=== PATIENT | female | born 1995 | race Caucasian/White ===

== ENCOUNTER 2020-01-05 10:55 | Outpatient (REF) | payer OTHER, SELFPAY ==
[2020-01-05 15:12] LABS: Influenza A PCR NEGATIVE (Negative); Influenza B PCR NEGATIVE (Negative); Resp Syncy Virus RNA Qual PCR NEGATIVE (Negative); SARS COV2 PCR INHOUSE POSITIVE (Negative)
== END 2020-01-05 10:56 | disposition home or self-care (01) ==
LOC: HO.LAB 10:55
PROVIDERS: Visit Provider Hospitalist
DX: Z20.828 Contact with and (suspected) exposure to other viral communicable diseases (principal); B34.9 Viral infection, unspecified
CPT/HCPCS: 0241U

== ENCOUNTER 2020-01-06 11:11 | Emergency (ER) | payer OTHER, SELFPAY ==
[2020-01-06 11:39] VITALS: BP 111/75; PULSE 90; RESP 22; TEMP 36.7; O2SAT 99; BMI 36.1
--- NOTE | 2020-01-06 13:15 | ED.URI ---
HPI - URI/Sore Throat General Chief Complaint: Upper Respiratory Symptoms Stated Complaint: Covid + SOB Time Seen by Provider: 01/06/20 13:15 Source: patient Mode of arrival: ambulatory Limitations: no limitations History of Present Illness HPI Narrative: This is a 24-year-old female who reports to me that on 3 days ago she developed some runny nose congestion and body aches yesterday she went to her primary care doctor where she had a rapid test that was positive for COVID-19 she was subsequently discharged with precautions she tells me that she has very bad anxiety so she subsequently went to [facility] where she was evaluated had labs including chest x-ray according to the patient and was prescribed prednisone. She reports today that she has family members including her female partner who has had asthma and she is very anxious and she is afraid of given them COVID-19 and continues to have some congestion and body aches. No fever. States her anxiety is running very high due to his diagnosis. She denies any other social issues. she denies any GI symptoms. MD elicited complaint: fever, cough, rhinorrhea and nasal congestion Onset (ago): day(s) Consistency: intermittent Severity: mild Description of mucous: clear Able to tolerate fluids by mouth: Yes Exacerbating factors: nothing Relieving factors: nothing Context: sick contacts Associated symptoms: denies other symptoms Treatments prior to arrival: none and other ( Prednisone) Related Data Home Medications Medication Instructions Recorded Confirmed albuterol sulfate 90 mcg/actuation 2 puff PO Q4H PRN 01/05/20 01/05/20 aerosol inhaler famotidine 40 mg tablet 40 mg PO BEDTIME 01/05/20 01/05/20 ibuprofen 800 mg tablet 800 mg PO Q8H PRN 01/05/20 01/05/20 norethindrone acetate 1 mg-ethinyl 1 tab PO DAILY 01/05/20 01/05/20 estradiol 20 mcg tablet omeprazole 20 mg capsule,delayed 20 mg PO QAM 01/05/20 01/05/20 release vitamin 1 tab PO DAILY 01/05/20 01/05/20 no.76-iron,carbonyl 29 mg iron-folic acid 1 mg tablet sertraline 50 mg tablet 50 mg PO DAILY 01/05/20 01/05/20 trimethoprim 100 mg tablet 100 mg PO DAILY 01/05/20 01/05/20 Previous Rx's Medication Instructions Recorded amoxicillin 875 mg-potassium 1 tab PO BID #20 tab 01/05/20 clavulanate 125 mg tablet prednisone 20 mg tablet 20 mg PO .COMPLEX #18 tab 01/05/20 Allergies Allergy/AdvReac Type Severity Reaction Status Date / Time diphenhydramine [Excedrin PM] Allergy Unknown dizziness Verified 01/06/20 11:38 acetaminophen AdvReac Unknown dizziness Verified 01/06/20 11:38 [Excedrin Migraine] aspirin [Excedrin Migraine] AdvReac Unknown dizziness Verified 01/06/20 11:38 caffeine [Excedrin Migraine] AdvReac Unknown dizziness Verified 01/06/20 11:38 Wellbutrin AdvReac Unknown anger Uncoded 01/05/20 10:50 Review of Systems Review of Systems: Constitutional: No Weight loss, No Fever, No Chills, No Night Sweats, No Fatigue, No Malaise ENT/Mouth: No Hearing loss, No Ear Pain, No Nasal Congestion, No Sinus Pain, No Hoarseness, No sore throat, + Rhinorrhea, No Swallowing Difficulty Eyes: No Eye Pain, No Swelling, No Redness, No Foreign Body, No Discharge, No Vision Changes Cardiovascular: No Chest Pain, No SOB, No Dyspnea on Exertion, No Orthopnea, No Edema, No Palpitations Respiratory: + Cough, No Sputum, No Wheezing, No Smoke Exposure, No Dyspnea Gastrointestinal: No Nausea, No Vomiting, No Diarrhea, No Constipation, No abdominal Pain, No Hematochezia, No Melena Genitourinary: no irregular bleeding, No Dysuria, No Urinary Frequency, No Hematuria, No Urinary Incontinence, No Urgency, No Flank Pain, No Urinary Flow Changes, No Hesitancy Musculoskeletal: No joint pain, No Myalgias, No Joint Swelling Skin: No Skin Lesions, No rash Neuro: No Weakness, No Numbness, No Paresthesias, No Loss of Consciousness, No Dizziness, No Headache Psych: + Anxiety/Panic, No Depression, No SI/HI/AH/VH, No Social Issues Heme/Lymph: No Bruising, No Bleeding,No Lymphadenopathy Endocrine: No Polyuria, No Polydipsia, No Temperature Intolerance PMF Past Medical History Attestation statement: The following information was validated with the patient. Source: old records reviewed Medical History Anxiety and depression Asthma Migraine Social History Social History Advance Directives: No Advance Directives Information Provided: Yes Physical Exam Vital Signs: Vital Signs: Last Vital Signs Temp 98.0 F 01/06/20 11:39 Pulse 90 01/06/20 11:39 Resp 22 H 01/06/20 11:39 BP 111/75 01/06/20 11:39 Pulse Ox 99 01/06/20 11:39 Body Mass Index 36.1 reviewed Const: General: cooperative and healthy appearing; No acute distress or intoxicated appearing Nutritional Appearance: average body habitus Orientation/consciousness: patient oriented x3 HENMT: Head: Yes normal to inspection Ears: hearing grossly normal bilaterally Eyes: General: appearance normal, both eyes and all related structures Visual Hollis: normal visual hollis by confrontation Neck: Neck: Yes normal visual inspection, No positive Brudzinski's sign, No positive Kernig's sign and No tender Thyroid: Thyroid normal Chest: Chest palpation & inspection: normal inspection of the chest Resp: Effort & Inspection: normal respiratory effort Auscultation: clear to auscultation bilaterally Cardio: Jugular venous distension: no JVD Rhythm: regular rhythm Heart sounds: S1 normal heart sound present and S2 normal heart sound present GI: Inspection: Yes normal to inspection Percussion: Yes normal to percussion Auscultation: normal bowel sounds : General: Yes no CVA tenderness Back/Spine/Pelvis: Back: no CVA tenderness Skin: General skin exam: no rashes or lesions noted Neuro: General: patient oriented x3 Extrem: General: Yes normal to inspection Course Course Course Narrative: 24-year-old female tested positive for COVID-19 2 days ago in the setting of a URI does have history of asthma upon arrival she reports that she is very anxious at this time given her continued symptoms will check labs, repeat x-ray and reassurance. Patient is well nontoxic appearing. Afebrile. Patient did have ambulation trial her pulse ox was 100% and heart rate was 110. there was no shortness of breath. Patient ambulated over 200 ft in the ER and oxygen remained at 100%. Reevaluation(s) Reevaluation #1: After my initial evaluation and medical workup was ordered patient states that she does not really feel that she needs to have another x-ray and labs as she feels this is mostly anxiety. Shared decision making in regard to this I do agree that she is well nontoxic appearing and hemodynamically stable that okay to defer workup at this time as I do not suspect cardio pulmonary etiology more consistent with her anxiety. She will try some antihistamine at home continue with her prednisone and return if any concerns or worsening symptoms. Clear precautions and follow-up provided. Stable for discharge. Discharge Plan Discharge Clinical Impression: COVID-19, Anxiety about health Patient Disposition: Home, Self-Care Instructions: COVID-19 (Coronavirus Disease 2019) (ED) Additional Instructions: Please return if any concerns or worsening symptoms Otherwise take her prednisone as prescribed Self-isolation / social distancing Do a follow-up visit via phone with her primary care doctor in 3 days Thank you Prescriptions: No Action Thrivite Rx 29 mg iron- 1 mg tablet 1 tab PO DAILY RF: 0 sertraline 50 mg tablet 50 mg PO DAILY RF: 0 norethindrone ac-eth estradiol 1-20 mg-mcg tablet 1 tab PO DAILY RF: 0 famotidine 40 mg tablet 40 mg PO BEDTIME RF: 0 omeprazole 20 mg capsule,delayed release(DR/EC) 20 mg PO QAM RF: 0 albuterol sulfate 90 mcg/actuation HFA aerosol inhaler 2 puff PO Q4H PRNRF: 0 trimethoprim 100 mg tablet 100 mg PO DAILY RF: 0 ibuprofen 800 mg tablet 800 mg PO Q8H PRN (Reason: pain) RF: 0 prednisone 20 mg tablet 20 mg PO .COMPLEX Qty: 18 RF: 0 amoxicillin-pot clavulanate [Augmentin] 875-125 mg tablet 1 tab PO BID Qty: 20 RF: 0 Referrals: Skyler Martinez MD [Primary Care Provider] - 2 days (Phone visit )
== END 2020-01-06 14:09 | disposition home or self-care (01) ==
PROVIDERS: Emergency Provider Emergency Medicine; PCP Family Medicine
DX: U07.1 COVID-19 (principal); F41.1 Generalized anxiety disorder; F43.0 Acute stress reaction; R05 Cough; Z79.899 Other long term (current) drug therapy; Z20.828 Contact with and (suspected) exposure to other viral communicable diseases
CPT/HCPCS: 99283

== ENCOUNTER 2020-02-23 12:11 | Outpatient (REF) | payer OTHER, SELFPAY ==
[2020-02-23 13:53] LABS: MANUAL DIFF FLAG NO
[2020-02-23 13:58] LABS: Basophils Percent Auto 0.3 % (0-2); Eosinophils Absolute Auto 0.1 X10*3/uL (0.0-0.4); Hematocrit 40.7 % (37-47); Hemoglobin 12.1 g/dl (12.0-16.0); Imm Gran Abs Auto 0.11 X10*3/uL (0.00-0.03); Imm Gran Pct Auto 1.2 % (0.0-0.4); Lymphocytes Absolute Auto 2.9 X10*3/uL (1.2-4.9); Mean Corpuscular HGB Conc 29.7 g/dl (31.0-35.0); Mean Corpuscular Hemoglobin 24.3 pg (27.0-33.0); Mean Corpuscular Volume 81.7 fL (80-98); Mean Platelet Volume 9.4 fL (9.4-12.3); Monocytes Absolute Auto 0.6 X10*3/uL (0.1-1.2); Monocytes Percent Auto 6.5 % (2-11); Neutrophils Absolute Auto 5.2 X10*3/uL (2.0-8.3); Platelet Count 433 X10*3/uL (160-400); Red Blood Count 4.98 X10*6/uL (4.20-5.50); Red Cell Distribution Width 15.7 % (11.0-16.0); White Blood Count 8.9 X10*3/uL (4.8-10.8)
[2020-02-23 14:34] LABS: Alanine Aminotransferase 58 U/L (0-31); Albumin Level 4.5 g/dL (3.5-5.0); Alkaline Phosphatase 124 U/L (39-117); Anion Gap 14 (12-20); Aspartate Amino Transferase 32 U/L (5-31); Bilirubin Total 0.3 mg/dL (0.0-1.0); Blood Urea Nitrogen 9 mg/dL (9-16); C Reactive Protein 0.74 mg/dL (< or = 0.50); Calcium 9.3 mg/dL (8.4-10.2); Carbon Dioxide 24 mmol/L (22-29); Chloride 106 mmol/L (96-108); Estimated Glomerular Filt Rate > 60; Glucose Random 85 mg/dL (60-115); Potassium 4.6 mmol/l (3.3-5.1); Sodium 139 mmol/L (135-145); Total Protein 7.4 g/dL (6.5-8.0)
[2020-02-23 14:42] LABS: Erythrocyte Sedimentation Rate 20 MM/HR (0-20)
[2020-02-23 14:49] LABS: Syphilis Screen Nonreactive (Nonreactive)
[2020-02-23 14:54] LABS: TSH reflex Free T4 1.16 mIU/mL (0.32-4.0)
== END 2020-02-23 12:12 | disposition home or self-care (01) ==
LOC: HO.WFDLDS 12:11
PROVIDERS: Visit Provider Family Medicine
DX: Z00.00 Encounter for general adult medical examination without abnormal findings (principal); R20.2 Paresthesia of skin; Z11.3 Encounter for screening for infections with a predominantly sexual mode of transmission
CPT/HCPCS: 36415; 80053; 84443; 85025; 85652; 86140; 86780

== ENCOUNTER → 2020-03-07 13:46 | Outpatient (BNVA) | payer OTHER, SELFPAY | PROVIDERS: PCP Family Medicine; Visit Provider Advanced Practice Midwife | DX: N64.4 Mastodynia (principal) | CPT/HCPCS: 99212 ==

== ENCOUNTER 2020-03-08 11:38 | Outpatient (REF) | payer OTHER, SELFPAY ==
[2020-03-08 13:51] LABS: MANUAL DIFF FLAG NO
[2020-03-08 14:07] LABS: Basophils Percent Auto 0.4 % (0-2); Eosinophils Absolute Auto 0.1 X10*3/uL (0.0-0.4); Hematocrit 40.4 % (37-47); Imm Gran Abs Auto 0.02 X10*3/uL (0.00-0.03); Imm Gran Pct Auto 0.3 % (0.0-0.4); Lymphocytes Absolute Auto 2.7 X10*3/uL (1.2-4.9); Lymphocytes Percent Auto 34.9 % (20-40); Mean Corpuscular HGB Conc 29.7 g/dl (31.0-35.0); Mean Corpuscular Hemoglobin 24.3 pg (27.0-33.0); Mean Corpuscular Volume 81.8 fL (80-98); Mean Platelet Volume 9.6 fL (9.4-12.3); Monocytes Absolute Auto 0.6 X10*3/uL (0.1-1.2); Monocytes Percent Auto 7.1 % (2-11); Neutrophils Absolute Auto 4.4 X10*3/uL (2.0-8.3); Neutrophils Percent Auto 56.3 % (45-73); Platelet Count 420 X10*3/uL (160-400); Red Blood Count 4.94 X10*6/uL (4.20-5.50); Red Cell Distribution Width 14.9 % (11.0-16.0); White Blood Count 7.7 X10*3/uL (4.8-10.8)
[2020-03-08 14:37] LABS: Alanine Aminotransferase 53 U/L (0-31); Albumin Level 4.6 g/dL (3.5-5.0); Alkaline Phosphatase 111 U/L (39-117); Anion Gap 11 (12-20); Aspartate Amino Transferase 29 U/L (5-31); Bilirubin Total 0.4 mg/dL (0.0-1.0); Blood Urea Nitrogen 11 mg/dL (9-16); Calcium 9.4 mg/dL (8.4-10.2); Carbon Dioxide 27 mmol/L (22-29); Chloride 105 mmol/L (96-108); Estimated Glomerular Filt Rate > 60; Glucose Random 82 mg/dL (60-115); Iron 43 mcg/dL (30-160); Percent Iron Saturation 10 % (15-50); Potassium 4.9 mmol/l (3.3-5.1); Sodium 138 mmol/L (135-145); Total Iron Binding Capacity 449 mcg/dL (228-428); Total Protein 7.5 g/dL (6.5-8.0); Unsaturated Iron Binding 406 ug/dL
[2020-03-08 15:20] LABS: Folate 9.3 ng/mL (> or = 4.0); Vitamin B12 309 pg/mL (200-900)
== END 2020-03-08 11:39 | disposition home or self-care (01) ==
LOC: HO.WFDLDS 11:38
PROVIDERS: Visit Provider Family Medicine
DX: R79.89 Other specified abnormal findings of blood chemistry (principal); R74.01 Elevation of levels of liver transaminase levels; R20.2 Paresthesia of skin
CPT/HCPCS: 36415; 80053; 82607; 82746; 83540; 85025